=== PATIENT | female | born 1965 | race Hispanic/Latino ===

== ENCOUNTER 2017-11-21 13:51 | Emergency (ER) | payer MEDICARE ==
[2017-11-21] MEDS ORDERED: KETOROLAC TROMETHAMINE 60 MG/2 ML VIAL ONE (15:39)
== END 2017-11-21 16:58 | disposition home or self-care (01) ==
LOC: EDH 13:51
DX: S93.492A Sprain of other ligament of left ankle, initial encounter (principal); S93.505A Unspecified sprain of left lesser toe(s), initial encounter; S40.011A Contusion of right shoulder, initial encounter; S09.8XXA Other specified injuries of head, initial encounter; E11.9 Type 2 diabetes mellitus without complications; E78.5 Hyperlipidemia, unspecified; Z79.4 Long term (current) use of insulin; W17.89XA Other fall from one level to another, initial encounter; Y93.39 Activity, other involving climbing, rappelling and jumping off; Y92.89 Other specified places as the place of occurrence of the external cause; Y99.8 Other external cause status
CPT/HCPCS: 73030; 73610; 73660; 96372; 99284; J1885

== ENCOUNTER 2018-01-20 19:29 | Emergency (ER) | payer MEDICARE ==
[2018-01-20] MEDS ORDERED: METHYLPREDNISOLONE SOD SUCC 125MG/2ML VIAL ONE (20:00)
[2018-01-20] MEDS ORDERED: SODIUM CHLORIDE 0.9% 1000ML 1,000 ML IV ONE (20:00)
[2018-01-20 20:02] LABS: BASOPHILS % (AUTO) 0.9 % (0.0-5.0); HEMATOCRIT 39.3 % (36-48); LYMPHOCYTES % (AUTO) 25.4 % (21.0-51.0); MEAN CORPUSCULAR HEMOGLOBIN 29.6 pg (27.0-33.0); MEAN CORPUSCULAR HGB CONC 33.8 g/dL (32.0-36.0); MEAN CORPUSCULAR VOLUME 87.6 fL (79-99); MONOCYTES % (AUTO) 5.6 % (3.0-13.0); NEUTROPHILS % (AUTO) 64.1 % (40.0-77.0); PLATELET COUNT (AUTO) 253 K/uL (130-400); RED BLOOD CELL COUNT(AUTO) 4.49 MIL/uL (4.00-5.50); RED CELL DISTRIBUTION WIDTH 13.3 % (11.0-15.5); WHITE BLOOD COUNT (AUTO) 9.7 K/uL (4.8-10.8)
[2018-01-20 20:10] LABS: CREATININE 1.2 mg/dL (0.5-1.5); POTASSIUM 3.4 mmol/L (3.5-5.1)
[2018-01-20] MEDS ORDERED: IPRATROPIUM/ALBUTEROL SULFATE 3 ML SOLUTION IH ONE (20:16)
[2018-01-20 20:24] LABS: RAPID GROUP A STREP NEGATIVE (NEGATIVE)
[2018-01-20 20:29] LABS: APPEARANCE,URINE Cloudy (CLEAR); BILIRUBIN,URINE Negative (NEGATIVE); COLOR,URINE Dark Yellow (YELLOW); GLUCOSE, URINE (UA) Negative (NEGATIVE); KETONES,URINE Trace mg/dL (NEGATIVE); LEUKOCYTE ESTERASE ,URINE Negative (NEGATIVE); NITRATE,URINE Negative (NEGATIVE); OCCULT BLOOD,URINE Negative (NEGATIVE); PROTEIN,URINE Trace (NEGATIVE)
[2018-01-20 20:37] LABS: BACTERIA,URINE Rare /HPF (None Seen); MUCUS,URINE Moderate LPF (None Seen); RBC,URINE None Seen /HPF (0-1); SQUAMOUS EPITHELIAL CELL,UR 30-50 /HPF (0-2); WBC,URINE None Seen /HPF (0-1)
== END 2018-01-20 21:27 | disposition home or self-care (01) ==
LOC: EDH 19:29
DX: J20.9 Acute bronchitis, unspecified (principal); E11.9 Type 2 diabetes mellitus without complications; E78.5 Hyperlipidemia, unspecified; I10 Essential (primary) hypertension; E07.9 Disorder of thyroid, unspecified; Z88.8 Allergy status to other drugs, medicaments and biological substances; Z79.4 Long term (current) use of insulin; Z98.51 Tubal ligation status; Z90.710 Acquired absence of both cervix and uterus; Z87.891 Personal history of nicotine dependence
CPT/HCPCS: 36415; 71045; 80048; 81001; 85025; 87804 ×2; 87880; 93005; 94640; 96374; 99285; J2930; J7030; 96361

== ENCOUNTER 2023-12-03 10:57 | Emergency (ER) | payer OTHER, MEDICARE ==
[~2023-12-03] VITALS: Ht 167.6 cm; Wt 100.2 kg
[2023-12-03 11:14] VITALS: BP 128/72; PULSE 68; RESP 16
[2023-12-03] MEDS ORDERED: CYCL5TAB PO (12:49)
[2023-12-03] MEDS ORDERED: IBUP-2070 PO (12:49)
[2023-12-03] MEDS: KETOROLAC 60 MG VIAL (30MG/ML) IM ONE (13:47)
== END 2023-12-03 13:47 | disposition home or self-care (01) ==
LOC: EDH 10:57
DX: S80.02XA Contusion of left knee, initial encounter (principal); E11.9 Type 2 diabetes mellitus without complications; E78.00 Pure hypercholesterolemia, unspecified; I10 Essential (primary) hypertension; Z90.710 Acquired absence of both cervix and uterus; W18.39XA Other fall on same level, initial encounter; Y93.89 Activity, other specified; Y92.89 Other specified places as the place of occurrence of the external cause; Y99.8 Other external cause status
CPT/HCPCS: 99283; 73562; 96372; J1885

== ENCOUNTER 2024-01-19 18:01 | Emergency (ER) | payer OTHER, MEDICARE ==
[~2024-01-19] VITALS: Ht 157.5 cm; Wt 95.7 kg
[~2024-01-19 18:01] MED LIST: CYCL5TAB PO; IBUP-2070 PO
[2024-01-19] MEDS: KETOROLAC 30MG VIAL (30MG/ML) IM ONE (20:31)
[2024-01-19 20:41] VITALS: BP 134/82; PULSE 72; RESP 17; O2SAT 98
[2024-01-19] MEDS ORDERED: DICL20GE TP (21:26)
== END 2024-01-19 21:40 | disposition home or self-care (01) ==
LOC: EDH 18:01
DX: S80.01XA Contusion of right knee, initial encounter (principal); I10 Essential (primary) hypertension; E03.9 Hypothyroidism, unspecified; E11.9 Type 2 diabetes mellitus without complications; E78.00 Pure hypercholesterolemia, unspecified; M19.90 Unspecified osteoarthritis, unspecified site; Z90.710 Acquired absence of both cervix and uterus
CPT/HCPCS: 99283; 73562; 96372; J1885

== ENCOUNTER 2024-09-02 14:06 | Emergency (ER) | payer OTHER, MEDICARE ==
[~2024-09-02] VITALS: Ht 167.6 cm; Wt 102.5 kg
[~2024-09-02 14:06] MED LIST changes: -CYCL5TAB PO; +CYCL5TAB3 PO; +DICL20GE TP; +IBUP-2077 PO
[2024-09-02 14:53] VITALS: BP 112/60; PULSE 62; RESP 16; TEMP 98; O2SAT 99
[2024-09-02] MEDS: ketOROlac 15MG/ML VIAL (15MG/ML) IM ONE (15:21)
--- NOTE | 2024-09-02 15:27 | ERN ---
General Chief Complaint: Shoulder Injury/Pain Stated Complaint: FELL ON LEFT ARM FROM SOFA Time Seen by MD: 14:06 Time Seen by Midlevel: 14:06 Source: patient History of Present Illness Initial Comments 59-year-old female presents to the ED due to left shoulder/arm pain. Patient reports she was on the recliner rolled to her side and fell off approximately at 2:00 a.m. Denies any head injuries, loss of consciousness, further injuries or associated symptoms. PMHx HTN, DM, hypercholesterolemia, hypothyroidism Allergies: Coded Allergies: insulin detemir (Unverified Allergy, Unknown, 09/02/24) Home Meds Active Scripts Ibuprofen (Ibuprofen 800 mg Tab) 800 Mg Tab, 800 MG PO Q8H PRN for fever or pain, #30 TAB 0 Refills Prov:MACKENZIE STANLEY [employer] 03/19/24 Diclofenac Sodium (Voltaren Arthritis Pain) 1 % Gel..gram., 1 APPL TP BID, #100 GM Prov:ANTOINETTE LEBLANC 01/19/24 Cyclobenzaprine HCl (Cyclobenzaprine HCl) 5 Mg Tablet, 5 MG PO HS PRN for Muscle spasm, #8 TAB 0 Refills Prov:FLORESITA MAE NP 12/03/23 Ibuprofen (Ibuprofen) 600 Mg Tablet, 600 MG PO Q6H PRN for PAIN, #15 TAB 0 Refills Prov:FLORESITA MAE [employer] 12/03/23 Past Medical History Past Medical History: Diabetes-Type II, High Cholesterol, Hypertension, Hypothyroid Past Surgical History: Hysterectomy, Cholecystectomy Social History Social History: Negative, Lives with family Female( History) History: Not Applicable ROS Dictation Constitutional: Negative for fever,chills, and weight loss Eyes: Negative for injury, pain,redness, and discharge ENT: Negative for injury,pain or swelling Cardiovascular: Negative for chest pain, palpitations, and edema Respiratory: Negative for shortness of breath, cough, and wheezing, Abdomen/GI: Negative for abdominal pain, nausea, vomiting, diarrhea, and constipation Back: Negative for injury and pain : Negative for painful urination, bleeding or discharge MS/Extremity: Positive for left shoulder/arm pain Negative for injury and deformity Skin: Negative for rash, and discoloration Neuro: Negative for headache, weakness, numbness, tingling, and seizure Psych: Negative for suicide ideation, homicidal ideation, and hallucinations Physical Exam Physical Exam Dictation General: awake, alert, no acute distress Head/Face: Normocephalic, atraumatic Eyes: normal conjunctiva Neck: Normal range of motion, supple, no tenderness Cardiovascular: Normal peripheral perfusion Skin: Warm, dry, normal turgor, no rash MS/Extremity: Pulses equal, no cyanosis, neurovascular intact, tenderness to palpation of the left humerus, limited range of motion of the left shoulder restricted by pain, full passive range of motion Neuro: COAx4, GCS 15, no neurological deficits, normal gait, Psych: Normal behavior, mood, and affect normal Results EKG/XRAY/US/CT/MRI X-RAY Comment REASON: Pain ORDERING PHYSICIAN: DICK HUTCHISON PROCEDURE: SHOL 2V LT - SHOULDER COMP 2+VWS LT SHOULDER COMP 2+VWS LT HISTORY: Status post fall COMPARISON: 11/21/2017 TECHNIQUE: 2 images of left shoulder were obtained. FINDINGS: There is no acute displaced fracture or dislocation. Degenerative changes are seen. IMPRESSION: 1. Findings as described above. REASON: Pain ORDERING PHYSICIAN: DICK HUTCHISON PROCEDURE: HUM 2V LT - HUMERUS 2+VWS LT HUMERUS 2+VWS LT HISTORY: Status post fall COMPARISON: None TECHNIQUE: 2 images of left humerus were obtained. FINDINGS: Hill-Sachs deformity is seen. There is no acute displaced fracture or dislocation. Degenerative changes are seen. IMPRESSION: 1. Findings as described above. MDM MDM: Differential diagnosis: Fracture, sprain, strain, dislocation Rationale:59-year-old female presents to the ED due to left shoulder/arm pain. Patient reports she was on the recliner rolled to her side and fell off approximately at 2:00 a.m. Denies any head injuries, loss of consciousness, further injuries or associated symptoms. PMHx HTN, DM, hypercholesterolemia, hypothyroidism X-rays obtained of the shoulder and left humerus with no indications of fractures, dislocations or acute abnormalities. Per physical examination patient has limited active range of motion of the left shoulder restricted by pain but full passive range of motion, neurovascularly intact, no deformities observed. Patient was administered ketorolac in the ED and placed in a sling. Advised to follow up with PCP. Return to the ED if any worsening symptoms. Patient was educated on pain management at home with Tylenol and ibuprofen. Patient verbalized understanding. There are no social concerns with this patient. I independently interpreted the test that were performed, results were reviewed by me and considered findings on radiology if ordered. Medical management and examination interpretation discussions were had by me with other qualified healthcare professionals as indicated for the patient's care. ED Course Orders Procedure Category Date Status Time Shoulder Comp 2+Vws Lt RAD 09/02/24 Resulted 14:17 Humerus 2+Vws Lt RAD 09/02/24 Resulted 14:17 Ketorolac PHA 09/02/24 Complete Tromethamine 15mg/Ml 15:30 Current Medications Medications (Trade) Dose Ordered Sig/Ashlee Route PRN Reason Start Time Stop Time Status Last Admin Dose Admin Ketorolac Tromethamine (toRADol) 15 mg ONCE ONCE IM 09/02/24 15:30 09/02/24 15:31 DC 09/02/24 15:21 Vital Signs Date Time Temp Pulse Resp B/P (MAP) Pulse Ox O2 Delivery O2 Flow Rate FiO2 09/02/24 14:53 98.1 62 16 112/60 99 Room Air* 0 21 09/02/24 14:08 98.1 64 16 112/63 99 Room Air 0 DX & DISP Disposition: Discharge Decision to Admit Date: Sep 02, 2024 Departure Impression: Primary Impression: Left shoulder pain Condition: Stable Additional Instructions: Discharge home. Rest. Follow up with primary care in 24 hours. Return to the ER for any acute changes or worsening symptoms. If any medications were prescribed take as directed. Okay to continue home medications unless otherwise discussed during your visit in the emergency room today. Patient was also advised to follow-up with primary care physician in 1 to 2 days for continued monitoring. Referrals: SELF,REFERRAL (PCP) I participated in the following activities of this patient's care: For this patient encounter, I reviewed the PA or [employer] documentation, treatment plan, and medical decision making. I did not have [id number] time with this patient. I will sign as the reviewing DrShonda And agree with the treatment plan and disposition. DICK HUTCHISON Sep 02, 2024 15:27
--- NOTE | 2024-09-02 15:30 | NUR ---
SLING PLACED PER MD REQUEST
--- NOTE | 2024-09-02 15:42 | HMCIMG ---
SHOULDER COMP 2+VWS LT HISTORY: Status post fall COMPARISON: 11/21/2017 TECHNIQUE: 2 images of left shoulder were obtained. FINDINGS: There is no acute displaced fracture or dislocation. Degenerative changes are seen. IMPRESSION: 1. Findings as described above.
--- NOTE | 2024-09-02 15:42 | HMCIMG ---
HUMERUS 2+VWS LT HISTORY: Status post fall COMPARISON: None TECHNIQUE: 2 images of left humerus were obtained. FINDINGS: Hill-Sachs deformity is seen. There is no acute displaced fracture or dislocation. Degenerative changes are seen. IMPRESSION: 1. Findings as described above.
== END 2024-09-02 15:32 | disposition home or self-care (01) ==
LOC: EDH 14:06
DX: M25.512 Pain in left shoulder (principal); E11.9 Type 2 diabetes mellitus without complications; E03.9 Hypothyroidism, unspecified; E78.00 Pure hypercholesterolemia, unspecified; I10 Essential (primary) hypertension; Z79.1 Long term (current) use of non-steroidal anti-inflammatories (NSAID); Z90.49 Acquired absence of other specified parts of digestive tract; Z90.710 Acquired absence of both cervix and uterus
CPT/HCPCS: 99284; 73060; 73030; 96372; J1885